=== PATIENT | female | born 1940 | race Caucasian/White ===

== ENCOUNTER 2020-09-17 04:35 | Outpatient (CLI) | payer MEDICARE, MEDICAID, SELFPAY ==
[2020-09-17 13:46] LABS: Hemoglobin A1C 8.1 % (<5.7)
[2020-09-17 14:08] LABS: Anion Gap 8.5 mmol/L (3-11); BUN 17 mg/dL (7-18); CO2 27.5 mmol/L (21.0-32.0); CREATININE 1.27 mg/dL (0.55-1.02); Calcium 8.9 mg/dL (8.5-10.1); Calculated LDL 126 mg/dL (<100); Chloride 102 mmol/L (98-107); Cholesterol 240 mg/dL (<200); Estimated GFR 40.59 (mL/min/1.73m2); Glucose 303 mg/dL (74-106); HDL Cholesterol 38 mg/dL (40-60); Sodium 138 mmol/L (136-145); TSH 2.78 uIU/mL (0.36-3.74); Triglyceride 384 mg/dL (<150)
== END 2020-09-17 04:55 ==
PROVIDERS: PCP Nurse Practitioner Family; Visit Provider Nurse Practitioner Family
DX: E11.9 Type 2 diabetes mellitus without complications (principal); E03.9 Hypothyroidism, unspecified
CPT/HCPCS: 36415; 80048; 80061; 83036; 84439; 84443

== ENCOUNTER 2020-12-30 02:27 | Outpatient (CLI) | payer MEDICARE, MEDICAID, SELFPAY ==
[2020-12-30] MEDS: Omnipaque 350 MG/ML 50 ML BTL IJ (08:51)
[2020-12-30 08:52] LABS: Abs Immature Grans 0.02 10^3/uL (0.0-0.06); Absolute Basophil Count 0.06 10^3/uL (0.0-0.2); Absolute Eosinophil Count 0.31 10^3/uL (0.0-0.7); Absolute Lymphocyte Count 1.69 10^3/uL (1.2-3.4); Absolute Monocyte Count 0.58 10^3/uL (0.1-0.8); Absolute Neutrophil Count 4.51 10^3/uL (1.2-6.7); Basophils % 0.8; Eosinophils % 4.3; HCT 36.4 % (36.0-46.0); Immature Grans % 0.3; Lymphocytes % 23.6; MCH 31.2 pg (27.0-33.0); MCV 94.5 fL (80-95); MPV 9.2 fL (8.0-11.0); Monocytes % 8.1; Neutrophils % 62.9; Nucleated RBC 0 %; Platelet Count 243 10^3/uL (130-400); RBC 3.85 10^6/uL (3.93-5.22); RDW 11.9 % (11.7-14.6); RDW-SD 41.2 fL; WBC 7.17 10^3/uL (4.4-10.8)
[2020-12-30 09:04] LABS: ALT 22 U/L (14-59); AST 16 U/L (15-37); Albumin 3.2 g/dL (3.4-5.0); Alkaline Phosphatase 58 U/L (46-116); Anion Gap 7.5 mmol/L (3-11); BUN 18 mg/dL (7-18); Bilirubin, Total 0.4 mg/dL (0.2-1.0); CO2 29.5 mmol/L (21.0-32.0); CREATININE 1.1 mg/dL (0.55-1.02); Calcium 8.7 mg/dL (8.5-10.1); Chloride 104 mmol/L (98-107); Estimated GFR 47.91 (mL/min/1.73m2); Glucose 186 mg/dL (74-106); Potassium 4.3 mmol/L (3.5-5.1); Sodium 141 mmol/L (136-145); Total Protein 6.7 g/dL (6.4-8.2)
--- NOTE | 2020-12-30 10:09 | DI.CT_ITS ---
EXAM: CT CHEST/ABD/PEL W CLINICAL HISTORY: h/o colon ca, s/p rt hemicolectomy,restaging evaluation,compare to ct uvm. TECHNIQUE: Imaging Protocol: Axial computed tomography images with coronal and sagittal reformatted images were created and reviewed CONTRAST MATERIAL: Intravenous: Omnipaque 350 Contrast volume:100 ml Oral: None COMPARISON: CT CT_CHEST W/CONTRAST from 06/20/[address]_CHEST W/CONTRAST from 06/20/[address]_ABDOMEN, PELVIS from 06/20/2019 . Outside study. FINDINGS: CHEST: LUNGS: Lungs are clear. No infiltrates nor pleural effusions. No ominous pulmonary nodules.. MEDIASTINUM: There is no hilar nor mediastinal adenopathy. Visualized thyroid unremarkable.Moderate s ize retrocardiac hiatal hernia is again noted. CARDIAC: Heart size is normal. There is no pericardial effusion.Caliber of the thoracic aorta is wit hin normal limits. OSSEOUS: No significant osseous lesions.. ABDOMEN: There is no ascites. LIVER: There is a small benign-appearing cyst in the right hepatic lobe again noted, unchanged. No n ew obvious focal hepatic lesions. No dilatation of intrahepatic ducts. GALLBLADDER/BILIARY: No obvious gallbladder pathology. CBD is not dilated. PANCREAS: No evidence of pancreatic mass nor dilatation of the pancreatic duct. SPLEEN: Spleen is not enlarged. There are no intrasplenic lesions. Splenic and portal veins are dolan nt. ADRENALS: Slight focal thickening of the lateral limb of the right adrenal gland is noted. This is p robably a small nodule measuring 8 x 9 millimeters. Probably unchanged. Medial limb of the right ad renal gland is unremarkable as is the left adrenal gland. KIDNEYS: Small parapelvic cysts are again noted in the left kidney.. No solid renal lesions on eithe r side. No calculi nor hydronephrosis. ABDOMINAL AORTA: Abdominal aorta is atherosclerotic. Upper normal diameter. LYMPH NODES: There are few small lymph nodes in the octavia hepatis region and around the pancreatic he ad which appear unchanged from the prior study. The largest of these measures 12 by 6 millimeters. There is no para-aortic adenopathy. ABDOMINAL WALL/GI: No evidence of significant anterior abdominal wall hernia. Partial right hemicole ctomy. No bowel obstruction. No free air. No abscess. PELVIS: LYMPH NODES: There is no intrapelvic nor inguinal adenopathy. GI: No evidence of appendicitis.No evidence of sigmoid diverticulitis. URINARY BLADDER: Uniform bladder wall thickening. No diverticuli. No calculi. REPRODUCTIVE: Calcified fibroid in the uterine fundus is again noted, left of center. There is also partial calcification right ovary, unchanged. Left ovary and does not exhibit calcifications. Ovari an size is unchanged from the June 2019 study. No ominous ovarian masses. No free fluid in the pelvis. OSSEOUS: No significant osseous lesions. IMPRESSION: 1. No significant intrathoracic findings. Lungs are clear and there are no pleural effusions nor int rathoracic adenopathy. 2. In the abdomen there are unchanged small lymph nodes around the pancreatic head and octavia hepatis region, unchanged from 06/20/2019. There is no para-aortic adenopathy. 3. Small 8-9 millimeter nodule in the right adrenal gland appears unchanged from the previous study. 4. Calcified uterine fibroid. Partially calcified right ovary. These findings are unchanged from 2018 CT scan. No new adnexal masses and no free fluid. 5. No significant osseous lesions evident. RADIATION DOSE DELIVERED: 1,680.31mGy.cm Total DLP DATA REPOSITORY: All CT scans at this facility are submitted to the National Radiology Data Registry (NRDR) Dose Index Registry (DIR) with the [employer] ([employer]). RADIATION OPTIMIZATION: All CT scans at this facility use at least one of these dose optimization te chniques: automated exposure control; mA and/or kV adjustment per patient size (includes targeted exa ms where dose is matched to clinical indication); or iterative reconstruction.
[2020-12-30] MEDS: Normal Saline - Diluent 50 ML VIAL IV (10:16)
[2020-12-30] MEDS: Omnipaque 350 MG/ML 100 ML BTL IJ (10:16)
== END 2020-12-30 02:47 ==
PROVIDERS: PCP Family Medicine; Visit Provider Internal Medicine Hematology & Oncology
DX: Z85.038 Personal history of other malignant neoplasm of large intestine (principal); E27.8 Other specified disorders of adrenal gland
CPT/HCPCS: 74177; 80053; 71260; 82378; 85025; J3490; Q9967

== ENCOUNTER 2021-07-28 11:29 | Outpatient (CLI) | payer MEDICARE, MEDICAID, SELFPAY ==
[2021-07-28 12:35] LABS: Abs Immature Grans 0.02 10^3/uL (0.0-0.06); Absolute Basophil Count 0.05 10^3/uL (0.0-0.2); Absolute Eosinophil Count 0.24 10^3/uL (0.0-0.7); Absolute Lymphocyte Count 1.83 10^3/uL (1.2-3.4); Absolute Monocyte Count 0.77 10^3/uL (0.1-0.8); Absolute Neutrophil Count 5.08 10^3/uL (1.2-6.7); Basophils % 0.6; HCT 37.1 % (36.0-46.0); HGB 12.1 g/dL (11.2-15.7); Immature Grans % 0.3; Lymphocytes % 22.9; MCH 30.5 pg (27.0-33.0); MCHC 32.6 % (32.0-36.0); MCV 93.5 fL (80-95); MPV 9.5 fL (8.0-11.0); Monocytes % 9.6; Neutrophils % 63.6; Nucleated RBC 0 %; Platelet Count 288 10^3/uL (130-400); RBC 3.97 10^6/uL (3.93-5.22); RDW 11.5 % (11.7-14.6); RDW-SD 39.5 fL; WBC 7.99 10^3/uL (4.4-10.8)
[2021-07-28 12:48] LABS: ALT 21 U/L (14-59); AST 15 U/L (15-37); Albumin 3.3 g/dL (3.4-5.0); Alkaline Phosphatase 80 U/L (46-116); Anion Gap 5.6 mmol/L (3-11); BUN 23 mg/dL (7-18); Bilirubin, Total 0.4 mg/dL (0.2-1.0); CO2 30.4 mmol/L (21.0-32.0); CREATININE 1.3 mg/dL (0.55-1.02); Calcium 9.1 mg/dL (8.5-10.1); Chloride 100 mmol/L (98-107); Estimated GFR 39.41 (mL/min/1.73m2); Glucose 375 mg/dL (74-106); Potassium 5.4 mmol/L (3.5-5.1); Sodium 136 mmol/L (136-145)
[2021-07-28 21:59] LABS: CEA 1.2 ng/mL (See Note)
== END 2021-07-28 11:30 | disposition home or self-care (01) ==
LOC: LBO 07-29 11:30
PROVIDERS: PCP Family Medicine; Visit Provider Internal Medicine Hematology & Oncology
DX: C18.2 Malignant neoplasm of ascending colon (principal)
CPT/HCPCS: 36415; 80053; 82378; 85025

== ENCOUNTER 2022-12-15 03:36 | Outpatient (CLI) | payer MEDICARE, MEDICAID, SELFPAY ==
[2022-12-15 07:24] LABS: HCT 39.9 % (36.0-46.0); HGB 12.7 g/dL (11.2-15.7); MCH 30.1 pg (27.0-33.0); MCHC 31.8 % (32.0-36.0); MCV 95 fL (80-95); MPV 9.1 fL (8.0-11.0); Platelet Count 266 10^3/uL (130-400); RBC 4.22 10^6/uL (3.93-5.22); RDW 12.3 % (11.7-14.6); RDW-SD 42.4 fL; WBC 11.04 10^3/uL (4.4-10.8)
[2022-12-15 08:21] LABS: ALT 19 U/L (14-59); AST 15 U/L (15-37); Albumin 3.5 g/dL (3.4-5.0); Alkaline Phosphatase 71 U/L (46-116); Anion Gap 8.3 mmol/L (3-11); BUN 20 mg/dL (7-18); Bilirubin, Total 0.3 mg/dL (0.2-1.0); CO2 28.7 mmol/L (21.0-32.0); CREATININE 1.3 mg/dL (0.55-1.02); Calcium 9.3 mg/dL (8.5-10.1); Calculated LDL 158 mg/dL (<100); Chloride 106 mmol/L (98-107); Cholesterol 276 mg/dL (<200); Estimated GFR 41.31 (mL/min/1.73m2); Glucose 172 mg/dL (74-106); HDL Cholesterol 50 mg/dL (40-60); Potassium 4.1 mmol/L (3.5-5.1); Sodium 143 mmol/L (136-145); Total Protein 7.2 g/dL (6.4-8.2); Triglyceride 340 mg/dL (<150); Vitamin B12 231 pg/mL (193-986)
== END 2022-12-15 03:37 | disposition home or self-care (01) ==
PROVIDERS: Absent Provider Nurse Practitioner; PCP Nurse Practitioner; Referring Provider Nurse Practitioner; Visit Provider Nurse Practitioner
DX: U07.1 COVID-19; E11.22 Type 2 diabetes mellitus with diabetic chronic kidney disease; E53.8 Deficiency of other specified B group vitamins; E78.5 Hyperlipidemia, unspecified; I12.9 Hypertensive chronic kidney disease with stage 1 through stage 4 chronic kidney disease, or unspecified chronic kidney disease; N18.9 Chronic kidney disease, unspecified; Z85.038 Personal history of other malignant neoplasm of large intestine
CPT/HCPCS: 36415; 80053; 80061; 85027; 82607

== ENCOUNTER 2023-10-26 04:38 | Outpatient (CLI) | payer MEDICARE, MEDICAID, SELFPAY ==
[2023-10-26 08:05] LABS: ALT 24 U/L (14-59); AST 17 U/L (15-37); Albumin 3.3 g/dL (3.4-5.0); Alkaline Phosphatase 83 U/L (46-116); Anion Gap 8.4 mmol/L (3-11); BUN 27 mg/dL (7-18); Bilirubin, Total 0.4 mg/dL (0.2-1.0); CO2 26.6 mmol/L (21.0-32.0); CREATININE 1.3 mg/dL (0.55-1.02); Calcium 9.4 mg/dL (8.5-10.1); Calculated LDL 173 mg/dL (<100); Chloride 104 mmol/L (98-107); Cholesterol 285 mg/dL (<200); Estimated GFR 41.06 (mL/min/1.73m2); Glucose 183 mg/dL (74-106); HDL Cholesterol 51 mg/dL (40-60); Potassium 3.8 mmol/L (3.5-5.1); Sodium 139 mmol/L (136-145); Total Protein 7.3 g/dL (6.4-8.2); Triglyceride 305 mg/dL (<150)
== END 2023-10-26 04:39 | disposition home or self-care (01) ==
LOC: LBO 04:38
PROVIDERS: PCP Nurse Practitioner; Referring Provider Nurse Practitioner; Visit Provider Nurse Practitioner
DX: E11.9 Type 2 diabetes mellitus without complications (principal); E78.5 Hyperlipidemia, unspecified
CPT/HCPCS: 36415; 80053; 80061

== ENCOUNTER 2023-12-29 05:24 | Outpatient (CLI) | payer MEDICARE, MEDICAID, SELFPAY ==
[2023-12-29 15:36] LABS: Anion Gap 7.3 mmol/L (3-11); BUN 33 mg/dL (7-18); CO2 27.7 mmol/L (21.0-32.0); CREATININE 1.4 mg/dL (0.55-1.02); Calcium 9.1 mg/dL (8.5-10.1); Chloride 106 mmol/L (98-107); Estimated GFR 37.56 (mL/min/1.73m2); Glucose 242 mg/dL (74-106); Potassium 4.9 mmol/L (3.5-5.1); Sodium 141 mmol/L (136-145); TSH (W/Ref FT4) 2.91 uIU/mL (0.36-3.74)
== END 2023-12-29 05:25 | disposition home or self-care (01) ==
LOC: LBO 05:24
PROVIDERS: PCP Nurse Practitioner; Visit Provider Nurse Practitioner
DX: E11.9 Type 2 diabetes mellitus without complications (principal); N18.9 Chronic kidney disease, unspecified; I10 Essential (primary) hypertension; E78.5 Hyperlipidemia, unspecified
CPT/HCPCS: 36415; 80048; 84443

== ENCOUNTER 2024-03-21 05:22 | Outpatient (CLI) | payer MEDICARE, MEDICAID, SELFPAY ==
[2024-03-21 14:58] LABS: Anion Gap 7.6 mmol/L (3-11); BUN 28 mg/dL (7-18); CO2 28.4 mmol/L (21.0-32.0); CREATININE 1.2 mg/dL (0.55-1.02); Calcium 9.3 mg/dL (8.5-10.1); Chloride 102 mmol/L (98-107); Estimated GFR 45.19 (mL/min/1.73m2); Glucose 324 mg/dL (74-106); Potassium 5.1 mmol/L (3.5-5.1); Sodium 138 mmol/L (136-145)
[2024-03-21 15:09] LABS: Hemoglobin A1C 9.5 % (<5.7)
== END 2024-03-21 05:23 | disposition home or self-care (01) ==
LOC: LBO 05:22
PROVIDERS: PCP Nurse Practitioner; Referring Provider Nurse Practitioner; Visit Provider Nurse Practitioner
DX: E11.9 Type 2 diabetes mellitus without complications (principal); Z51.81 Encounter for therapeutic drug level monitoring
CPT/HCPCS: 36415; 80048; 83036

== ENCOUNTER 2025-01-24 02:13 | Outpatient (CLI) | payer MEDICARE, MEDICAID, SELFPAY ==
[2025-01-24 07:48] LABS: Abs Immature Grans 0.02 10^3/uL (0.0-0.06); Absolute Basophil Count 0.07 10^3/uL (0.0-0.2); Absolute Eosinophil Count 0.24 10^3/uL (0.0-0.7); Absolute Lymphocyte Count 2.06 10^3/uL (1.2-3.4); Absolute Monocyte Count 0.72 10^3/uL (0.1-0.8); Absolute Neutrophil Count 4.19 10^3/uL (1.2-6.7); Eosinophils % 3.3 %; HCT 38.8 % (36.0-46.0); HGB 12.7 g/dL (11.2-15.7); Immature Grans % 0.3 %; Lymphocytes % 28.2 %; MCH 30.7 pg (27.0-33.0); MCHC 32.7 % (32.0-36.0); MCV 94 fL (80-95); Monocytes % 9.9 %; Neutrophils % 57.3 %; RBC 4.14 10^6/uL (3.93-5.22); RDW 12.6 % (11.7-14.6); RDW-SD 43.7 fL
[2025-01-24 08:03] LABS: ALT 20 U/L (14-59); AST 16 U/L (15-37); Albumin 3.3 g/dL (3.4-5.0); Alkaline Phosphatase 86 U/L (46-116); Anion Gap 6.5 mmol/L (3-11); BUN 34 mg/dL (7-18); Bilirubin, Total 0.4 mg/dL (0.2-1.0); CO2 28.5 mmol/L (21.0-32.0); CREATININE 1.3 mg/dL (0.55-1.02); Calcium 9.5 mg/dL (8.5-10.1); Calculated LDL 155 mg/dL (<100); Chloride 107 mmol/L (98-107); Cholesterol 268 mg/dL (<200); Glucose 131 mg/dL (74-106); HDL Cholesterol 53 mg/dL (>or=50); Potassium 4.6 mmol/L (3.5-5.1); Sodium 142 mmol/L (136-145); Total Protein 7.1 g/dL (6.4-8.2); Triglyceride 300 mg/dL (<150)
== END 2025-01-24 02:14 | disposition home or self-care (01) ==
PROVIDERS: PCP Nurse Practitioner; Referring Provider Nurse Practitioner; Visit Provider Nurse Practitioner
DX: E11.9 Type 2 diabetes mellitus without complications (principal); I10 Essential (primary) hypertension; E78.5 Hyperlipidemia, unspecified
CPT/HCPCS: 36415; 80053; 80061; 85025

== ENCOUNTER 2025-03-14 01:10 | Outpatient (CLI) | payer MEDICARE, MEDICAID, SELFPAY ==
--- NOTE | 2025-03-14 13:07 | DI.RAD_ITS ---
Exam(s) XR LUMBAR SPINE COMPLETE EXAM: XR LUMBAR SPINE COMPLETE CLINICAL HISTORY: hx colon ca,low back pain, m54.50. TECHNIQUE: 2D digital imaging was performed of the lumbar spine. Six images were obtained. AP, lat eral, right oblique, left oblique and L5-S1 spot views were obtained. COMPARISON: No exams were available for comparison FINDINGS: BONES: No fracture or destructive lesion. There are endplate osteophytes throughout the lumbar spine, particularly at L2-3 and L3-L4. Degenerative changes of the facets are seen in the lower lumbar spin e. DISKS: There is disc space narrowing from L1-2 through L3-L4. ALIGNMENT: There is a very mild right convex thoracolumbar scoliosis. No spondylolysis or spondyloli sthesis. SOFT TISSUE: Atherosclerotic calcifications are present. IMPRESSION: 1. 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 2. No acute fracture or destructive lesions are seen. DATA REPOSITORY: RADIATION DOSE DELIVERED:
== END 2025-03-14 01:30 ==
LOC: DI 01:10
PROVIDERS: PCP Nurse Practitioner; Visit Provider Nurse Practitioner Family
DX: M51.360 Other intervertebral disc degeneration, lumbar region with discogenic back pain only (principal)
CPT/HCPCS: 72110

== ENCOUNTER 2025-05-04 10:42 | Outpatient (REF) | payer MEDICARE, MEDICAID, SELFPAY ==
[2025-05-04 15:40] LABS: EPI 027-NAP1-B1 PRESUMPTIVE NEGATIVE
[2025-05-05 11:37] LABS: Campylobacter PCR Negative (Negative); Shiga Toxin PCR Negative (Negative); Shigella/Enteroinvasive Ecoli Negative (Negative)
[2025-05-07 17:51] LABS: Rotavirus Antigen, Feces Negative (Negative)
[2025-05-08 13:34] LABS: Helicobacter pylori Ag, Feces Negative (Negative)
== END 2025-05-04 10:43 | disposition home or self-care (01) ==
LOC: LBN 10:42
PROVIDERS: PCP Nurse Practitioner; Visit Provider Family Medicine
DX: R19.7 Diarrhea, unspecified (principal)
CPT/HCPCS: 87015; 87046; 87269; 87272; 87338; 87425; 87505; 83630

== ENCOUNTER 2025-06-06 02:23 | Outpatient (CLI) | payer MEDICARE, MEDICAID, SELFPAY | END 2025-06-06 02:24 | disposition home or self-care (01) | LOC: LBO 02:23 → LBN 12:25 | PROVIDERS: Nurse Practitioner Adult Health; PCP Nurse Practitioner; Visit Provider Family Medicine | DX: R19.7 Diarrhea, unspecified (principal) | CPT/HCPCS: 83993 ==